=== PATIENT | male | born 1985 | race Hispanic/Latino ===

== ENCOUNTER 2018-02-19 07:14 | Inpatient (IN) | payer OTHER ==
[~2018-02-19] VITALS: Ht 152.4 cm; Wt 65.8 kg
[2018-02-19 07:39] LABS: BASOPHILS % (AUTO) 0.2 % (0.0-5.0); HEMATOCRIT 44.1 % (42-54); MEAN CORPUSCULAR HEMOGLOBIN 32.4 pg (27.0-33.0); MEAN CORPUSCULAR HGB CONC 34.5 g/dL (32.0-36.0); MEAN CORPUSCULAR VOLUME 93.8 fL (79-99); MONOCYTES % (AUTO) 4.8 % (3.0-13.0); PLATELET COUNT (AUTO) 231 K/uL (130-400); RED CELL DISTRIBUTION WIDTH 12.5 % (11.0-15.5); WHITE BLOOD COUNT (AUTO) 14.4 K/uL (4.8-10.8)
[2018-02-19] MEDS ORDERED: KETOROLAC TROMETHAMINE 30MG/ML ONE (07:41)
[2018-02-19] MEDS ORDERED: ONDANSETRON HCL 4 MG/2 ML VIAL ONE (07:41)
[2018-02-19 07:48] LABS: CREATININE 0.8 mg/dL (0.5-1.5); POTASSIUM 3.6 mmol/L (3.5-5.1)
[2018-02-19 07:50] LABS: ALBUMIN 4.3 g/dL (3.5-5.0); BILIRUBIN,TOTAL 0.4 mg/dL (0.2-1.0); TOTAL PROTEIN, SERUM 8.1 g/dL (6.0-8.3)
[2018-02-19 08:04] LABS: APPEARANCE,URINE CLOUDY (CLEAR); BILIRUBIN,URINE NEGATIVE (NEGATIVE); COLOR,URINE YELLOW (YELLOW); GLUCOSE, URINE (UA) 250 mg/dL (NEGATIVE); KETONES,URINE NEGATIVE (NEGATIVE); LEUKOCYTE ESTERASE ,URINE NEGATIVE (NEGATIVE); NITRATE,URINE NEGATIVE (NEGATIVE); OCCULT BLOOD,URINE MODERATE (NEGATIVE); PROTEIN,URINE TRACE (NEGATIVE); UROBILINOGEN,URINE 0.2 mg/dL (0.2-1.0)
[2018-02-19 08:15] LABS: RBC,URINE 0-1 /HPF (0-1)
[2018-02-19 08:16] LABS: BACTERIA,URINE Few /HPF (None Seen); SQUAMOUS EPITHELIAL CELL,UR None Seen /HPF (0-2); WBC,URINE 0-1 /HPF (0-1)
[2018-02-19 08:17] LABS: AMORPHOUS SEDIMENT,UR Moderate /LPF (None Seen)
[2018-02-19] MEDS ORDERED: ZOSYN 3.375GM+NS 50ML 50 ML IV ONE (10:28)
[2018-02-19] MEDS ORDERED: HYDROMORPHONE HCL 0.5 MG/0.5 ML ML ONE (10:29)
[2018-02-19] MEDS ORDERED: SODIUM CHLORIDE 0.9% 1000ML 1,000 ML IV ONE (10:32)
[2018-02-19 13:04] VITALS: BP 131/93
[2018-02-19] MEDS: LACTATED RINGERS 1000ML 1,000 ML IV SCH ×2 (14:41→23:55)
[2018-02-19] MEDS ORDERED: MEPERIDINE HCL/PF 25 MG/0.5 ML AMPUL IVP PRN (16:15)
[2018-02-19 16:21] VITALS: BP 135/89
[2018-02-19] MEDS: UNASYN 3GM+NS 100ML 100 ML IV SCH ×2 (19:05→23:55)
[2018-02-19 20:03] VITALS: BP 126/78
[2018-02-19] MEDS: ONDANSETRON HCL 4 MG/2 ML VIAL IVP PRN (20:37)
[2018-02-19 23:44] VITALS: BP 138/72
[2018-02-20] VITALS (19 sets, daily range): BP systolic 104–137; BP diastolic 67–83
[2018-02-20] MEDS: LACTATED RINGERS 1000ML 1,000 ML IV SCH (05:10)
[2018-02-20 05:16] LABS: BASOPHILS % (AUTO) 0.1 % (0.0-5.0); EOSINOPHILS % (AUTO) 2.3 % (0.0-8.0); HEMATOCRIT 41.7 % (42-54); LYMPHOCYTES % (AUTO) 12.4 % (21.0-51.0); MEAN CORPUSCULAR HGB CONC 34.9 g/dL (32.0-36.0); MEAN CORPUSCULAR VOLUME 94.5 fL (79-99); MONOCYTES % (AUTO) 12.1 % (3.0-13.0); NEUTROPHILS % (AUTO) 73.1 % (40.0-77.0); PLATELET COUNT (AUTO) 247 K/uL (130-400); RED BLOOD CELL COUNT(AUTO) 4.41 MIL/uL (4.50-6.20); RED CELL DISTRIBUTION WIDTH 12.8 % (11.0-15.5)
[2018-02-20 05:30] LABS: CREATININE 0.8 mg/dL (0.5-1.5); MAGNESIUM 1.9 mg/dL (1.80-2.40); POTASSIUM 3.7 mmol/L (3.5-5.1)
[2018-02-20] MEDS: UNASYN 3GM+NS 100ML 100 ML IV SCH ×2 (05:41→12:58)
[2018-02-20] MEDS ORDERED: GLYCOPYRROLATE 0.2 MG/ML 5 ML VIAL ONE (07:11)
[2018-02-20] MEDS ORDERED: ONDANSETRON HCL 4 MG/2 ML VIAL ONE (07:11)
[2018-02-20] MEDS ORDERED: DEXAMETHASONE SOD PHOSPHATE 10MG/ML 1ML VIAL ONE ×2 (07:11→10:37)
[2018-02-20] MEDS ORDERED: LIDOCAINE PF 2% 5ML ABBOJECT ONE ×2 (07:11→10:23)
[2018-02-20] MEDS ORDERED: FENTANYL CITRATE PF 50 MCG/1 ML 2ML VIAL ONE ×2 (07:12→10:01)
[2018-02-20] MEDS ORDERED: MIDAZOLAM HCL 1 MG/ML 2ML VIAL ONE (07:12)
[2018-02-20] MEDS ORDERED: PROPOFOL 10 MG/ML 20ML VIAL IV ONE ×2 (07:12→10:34)
[2018-02-20] MEDS ORDERED: ISOVUE-370 50ML VIAL IV ONE (07:44)
[2018-02-20] MEDS ORDERED: BUPIVACAINE/PF 0.25% 30ML VIAL IJ ONE (07:55)
[2018-02-20] MEDS ORDERED: BUPIVACAINE/PF 0.5% 30ML VIAL ONE (07:55)
[2018-02-20] MEDS ORDERED: EPINEPHRINE 1 MG/ML AMPULE ONE (07:58)
[2018-02-20] MEDS: PANTOPRAZOLE SODIUM 40 MG TABLET.DR PO SCH (09:00)
[2018-02-20] MEDS ORDERED: ROCURONIUM BROMIDE 10MG/1ML 5ML VL ONE ×2 (10:36)
[2018-02-20] MEDS ORDERED: SUCCINYLCHOLINE CHLORIDE 20 MG/ML 10 ML VIAL ONE (10:37)
[2018-02-20] MEDS ORDERED: NEOSTIGMINE METHYLSULFATE 1MG/ML IV ONE (10:37)
[2018-02-20] MEDS ORDERED: METOCLOPRAMIDE 10 MG/2 ML VIAL ONE ×2 (10:37→11:28)
[2018-02-20] MEDS ORDERED: ONDANSETRON HCL MDV 20ML 2 MG/ML VIAL ONE (10:37)
[2018-02-20] MEDS ORDERED: LIDOCAINE HCL 4% LTA SOL 4 ML VIAL ONE ×2 (10:38)
[2018-02-20] MEDS ORDERED: MEPERIDINE-PF 25 MG/ML SYG ONE ×2 (11:28→11:45)
[2018-02-20] MEDS ORDERED: MORPHINE SULFATE 4 MG/1ML SYG IV PRN (11:30)
[2018-02-20] MEDS ORDERED: ONDANSETRON HCL MDV 20ML 2 MG/ML VIAL IVP PRN (11:30)
[2018-02-20] MEDS ORDERED: MORPHINE SULFATE 4 MG/1ML SYG IVP PRN (11:30)
[2018-02-20] MEDS: ONDANSETRON HCL 4 MG/2 ML VIAL IVP PRN (11:36)
[2018-02-20] MEDS: D5W-1/2 NS/20MEQ KCL 1,000 ML IV SCH (12:58)
[2018-02-20] MEDS: IBUPROFEN 800 MG TAB PO SCH ×3 (13:15→21:15)
[2018-02-20] MEDS: ACETAMINOPHEN-CODEINE 300/30MG TAB PO PRN (16:05)
[2018-02-21] VITALS: BP 111/67
[2018-02-21] MEDS: D5W-1/2 NS/20MEQ KCL 1,000 ML IV SCH ×2 (00:42→03:52)
[2018-02-21] MEDS: ACETAMINOPHEN-CODEINE 300/30MG TAB PO PRN (03:52)
[2018-02-21 04:00] VITALS: BP 130/80
[2018-02-21 07:30] VITALS: BP 124/75
[2018-02-21] MEDS: IBUPROFEN 800 MG TAB PO SCH ×2 (08:00→16:15)
[2018-02-21] MEDS: PANTOPRAZOLE SODIUM 40 MG TABLET.DR PO SCH (08:18)
[2018-02-21] MEDS ORDERED: ENOXAPARIN SODIUM 40 MG/0.4 ML SYRINGE SQ SCH (09:00)
[2018-02-21 11:00] VITALS: BP 129/83
[2018-02-21 16:00] VITALS: BP 123/64
[2018-02-21 20:00] VITALS: BP 130/77
== END 2018-02-21 21:05 | disposition home or self-care (01) | DRG 419 ==
LOC: EDH 07:14 → EDHIP 10:26 → 4AH 12:56
PROVIDERS: ADMIT Family Medicine; ATTEND Family Medicine
PROC: BF121ZZ Fluoroscopy of Gallbladder using Low Osmolar Contrast (ICD-10-PCS; 2018-02-20)
PROC: 0FT44ZZ Resection of Gallbladder, Percutaneous Endoscopic Approach (ICD-10-PCS; principal; 2018-02-20 10:00)
DX: K80.00 Calculus of gallbladder with acute cholecystitis without obstruction (principal); Q85.00 Neurofibromatosis, unspecified
CPT/HCPCS: 36415; 74300; 76705; 80048; 80053; 81001; 83690; 83735; 85025; 88304; C1758; J0171; J0295; J0330; J1100; J1170; J1650; J1885; J2001; J2175; J2250; J2270; J2405; J2543; J2704; J2710; J2765; J3010; J3480; J3490; J7030; J7120; Q9967